=== PATIENT | male | born 1970 | race Caucasian/White ===

== ENCOUNTER 2018-01-08 13:48 | Emergency (ER) | payer OTHER ==
[~2018-01-08] VITALS: Ht 175.3 cm; Wt 103.6 kg
[~2018-01-08 13:48] MED LIST: ALTACE10 M1 PO; ALTACE5 M1 PO; ANTIVERT12.5 MG PO; ASPIRIN LOW DOS81 M1; ASPIRIN LOW81 M1 OR; AURALGAN15 ML/BTL AD; AZITHROMYCIN250 MG PO; AZITHROMYCIN500 MG PO; CENTRUM OR; CHERATUSSIN OR; CIPRO500 MG PO; CIPROFLOXACN500 MG PO; CLARITHROMYC500 M2 PO; CLARITHROMYC500 MG PO; CLARITIN10 M1 PO; CRESTOR10 MG PO; CRESTOR40 MG PO; DOXYCYCL HYC100 MG PO; FISH OIL1200 M1 OR; FLONASE NASAL50 MCG; GLUCOSAMINE1500 MG PO; KEFLEX750 M1 PO; MEDDOSEPAK PO; NITE TIME MULTI-SYM2; OMNICEF300 MG PO; POTASSIUM; PREDNISONE20 MG PO; PROXETINE; ROBITUSS20; ROCEPHIN 1 GM1 GM IM; TRIAM/NYSTAT TOP; TRICOR145 MG PO; ZETIA10 MG PO; ZITHROMAX500 MG PO; ZOFRAN ODT8 MG OR; ZPAK PO; [UNRECOGNIZED DRUG - OTHER]
[2018-01-08 14:27] LABS: HEMATOCRIT 45.7 % (39.0-50.0); HEMOGLOBIN 15.9 g/dl (14.0-18.0); IMMATURE GRANULOCYTES 0.4 % (0.0-1.0); MEAN CELL VOLUME 86.6 fL CALC (80.0-100.0); MEAN CORPUSCULAR HGB 30.1 pG CALC (26.0-32.0); MEAN CORPUSCULAR HGB CONC 34.8 g/L CALC (32.0-36.0); NEUT# 7.32 thou/uL (1.82-7.42); RED BLOOD COUNT 5.28 mill/uL (4.70-6.10); RED CELL DISTRI WIDTH 12.2 % (11.5-15.5)
[2018-01-08 14:41] LABS: ALBUMIN 4.9 g/dL (3.2-5.0); ALKALINE PHOSPHATASE 128 u/l (38-126); ANION GAP 22 (6-22 (CALC)); BILIRUBIN, TOTAL 0.6 mg/dL (0.0-1.4); BUN 17 mg/dL (9-20); BUN/CREATININE RATIO 20 (12-20 (CALC)); CARBON DIOXIDE 26 mmol/l (22-30); CHLORIDE 95 mmol/l (95-108); CREATININE 0.8 mg/dL (0.7-1.3); GFR > 60 ML/MIN (>=60 (CALC)); GFR FOR AFR.AMER. > 60 ML/MIN (>=60 (CALC)); SGOT/AST 55 u/l (17-59); SGPT/ALT 72 u/l (21-72); SODIUM 139 mmol/l (137-146); TOTAL PROTEIN 8.4 g/dL (6.3-8.2)
[2018-01-08 14:42] LABS: POTASSIUM 3.8 mmol/l (3.5-5.1)
[2018-01-08 14:44] LABS: D-DIMER 0.21 mg/L (0.19-0.60); PROTHROMBIN TIME 11.4 SECONDS (9.0-12.5)
[2018-01-08 14:49] LABS: MYOGLOBIN 52 ng/mL (0 - 121)
[2018-01-08] MEDS ORDERED: ZOFRAN4 MG/TAB PO (15:42)
[2018-01-08] MEDS ORDERED: IMODIUM2 MG PO (15:42)
[2018-01-08 15:47] LABS: URINE BILIRUBIN - DIPSTICK NEGATIVE (NEGATIVE); URINE BLOOD DIPSTICK TRACE-LYSED (NEGATIVE); URINE COLOR YELLOW; URINE GLUCOSE - DIPSTICK 100 mg/dL (NEGATIVE); URINE KETONE NEGATIVE (NEGATIVE); URINE LEUK ESTERASE NEGATIVE (NEGATIVE); URINE NITRITE - DIPSTICK NEGATIVE (Negative); URINE PH 5.5 (4.5-8.0); URINE PROTEIN - DIPSTICK 30 mg/dL (NEG-TRACE); URINE SPECIFIC GRAVITY 1.025; URINE UROBILINOGEN - DIPSTICK 0.2 E.U./dL (0.2)
[2018-01-08 15:48] LABS: URINE CLARITY SL CLOUDY
[2018-01-08 15:54] VITALS: BP 138/78
[2018-01-08 15:55] LABS: URINE AMORPH SEDIMENT MODERATE hpf (NONE-FER); URINE FINE GRAN CAST RARE lpf; URINE MUCUS MODERATE hpf (NONE-FEW)
== END 2018-01-08 15:54 | disposition home or self-care (01) | DRG 897 ==
LOC: ED 13:48
DX: F11.23 Opioid dependence with withdrawal (principal); K52.1 Toxic gastroenteritis and colitis; T40.2X5A Adverse effect of other opioids, initial encounter; E11.9 Type 2 diabetes mellitus without complications; E78.5 Hyperlipidemia, unspecified; I10 Essential (primary) hypertension

== ENCOUNTER 2018-06-11 13:42 | Emergency (ER) | payer BC ==
[~2018-06-11] VITALS: Ht 175.3 cm; Wt 109.1 kg
[~2018-06-11 13:42] MED LIST changes: -CENTRUM OR; +IMODIUM2 MG PO; +ZOFRAN4 MG/TAB PO
[2018-06-11] MEDS ORDERED: ATORVASTATIN CA80 MG PO (14:12)
[2018-06-11] MEDS ORDERED: LISINOPRIL40 MG PO (14:13)
[2018-06-11] MEDS ORDERED: METFORMIN500 M2 PO (14:13)
[2018-06-11] MEDS ORDERED: TRAZODONE50 MG PO (14:14)
[2018-06-11] MEDS ORDERED: HYDROCHLOROT12.5 M1 PO (14:14)
[2018-06-11] MEDS ORDERED: METO50TA52 PO (14:16)
[2018-06-11] MEDS ORDERED: PAROXETINE HCL20 MG PO (14:16)
[2018-06-11] MEDS ORDERED: TRIAMCINOLONE0.025 % EX (14:22)
[2018-06-11] MEDS ORDERED: CALCIUM 600600 M1 PO (14:23)
[2018-06-11] MEDS ORDERED: ADLT ASA LOW81 MG PO (14:23)
[2018-06-11] MEDS ORDERED: CENTRUM PO (14:24)
[2018-06-11] MEDS ORDERED: GLUCOTROL10 MG PO (14:27)
[2018-06-11] MEDS ORDERED: FISH OIL1000 MG PO (14:27)
[2018-06-11] MEDS ORDERED: POTASSIUM99 MG PO (14:28)
[2018-06-11] MEDS ORDERED: VITAMIN D-31000 UNIT PO (14:28)
[2018-06-11] MEDS ORDERED: TIZANIDINE HCL4 MG PO (14:30)
[2018-06-11] MEDS ORDERED: UNISOM25 MG PO (14:31)
[2018-06-11] MEDS ORDERED: REPATHA SUR140 MG/ML IJ (14:33)
[2018-06-11] MEDS ORDERED: TESSALON PER100 MG PO (14:57)
[2018-06-11] MEDS ORDERED: DOXYCYCL HYC100 MG PO (14:57)
[2018-06-11] MEDS ORDERED: PROAIR HFA108 MCG/AC IN (14:57)
[2018-06-11] MEDS ORDERED: MEDICAL MARIJUANA (15:03)
[2018-06-11 15:05] VITALS: BP 113/80
== END 2018-06-11 15:05 | disposition home or self-care (01) | DRG 203 ==
LOC: ED 13:42
DX: J40 Bronchitis, not specified as acute or chronic (principal); R05 Cough; R09.81 Nasal congestion